=== PATIENT | female | born 1960 | race Caucasian/White ===

== ENCOUNTER 2016-10-09 22:27 | Emergency (ER) | payer OTHER ==
[2016-10-09 22:37] VITALS: O2SAT 95
[2016-10-09] MEDS ORDERED: TDAP ADULT 0.5 ML INJ (BOOSTRIX) IM ONE (22:49)
--- NOTE | 2016-10-09 22:50 | EDPHY ---
H & P Time Seen by Provider: 10/09/16 22:38 HPI/ROS: CHIEF COMPLAINT: Dog bite HISTORY OF PRESENT ILLNESS: This is a 56-year-old female presenting to the emergency department, reports her ochoa retriever had a seizure then after her dog woke up the dog was altered lunged at patient and bit her on the nose. Patient states her dog's vaccines are all up-to-date not ill. Patient states tetanus is not up-to-date. Denies any other injuries REVIEW OF SYSTEMS: Constitutional: No fever, no chills. Eyes: No discharge. ENT: No sore throat. Nose laceration Cardiovascular: No chest pain, no palpitations. Respiratory: No cough, no shortness of breath. Gastrointestinal: No abdominal pain, no vomiting. Genitourinary: No hematuria. Musculoskeletal: No back pain. Skin: No rashes. Bridge of nose laceration and abrasion to the tip of nose Neurological: No headache. Smoking Status: Never smoked Physical Exam: General Appearance: Alert, no distress. Eyes: no pallor or injection. ENT, Mouth: Mucous membranes moist. 2.5 cm laceration to bridge of nose, abrasion to the tip of nose Respiratory: Nonlabored respiratory effort Neurological: No focal deficits Skin: Warm and dry, no rashes. Musculoskeletal: No joint pain Psychiatric: Patient is oriented X 3, there is no agitation. Constitutional: Initial Vital Signs Temperature (C) 36.4 C 10/09/16 22:30 Heart Rate 43 L 10/09/16 22:30 Respiratory Rate 18 10/09/16 22:30 Blood Pressure 84/48 L 10/09/16 22:30 O2 Sat (%) 95 10/09/16 22:30 O2 Delivery Mode Room Air Allergies/Adverse Reactions: No Known Allergies Allergy (Unverified 10/09/16 22:37) Home Medications: Medication Instructions Recorded Amoxicillin/Clavulanate Pot 875 mg PO BID #14 tab 10/09/16 [Augmentin 875 MG TAB (*)] Medical Decision Making Procedures: Procedure: Laceration repair. Verbal consent was obtained from the patient. 2.5 cm laceration on the bridge of nose. 0.5% bupivacaine 3 mL local infiltrate. The wound was irrigated. There were no deep structures involved. The wound was repaired using 5-0 Ethilon 6 sutures placed with Steri-Strips. The procedure was performed by myself. Patient tolerated procedure. A dressing was applied by our EMT. ED Course/Re-evaluation: Discussed the plan of care: Wound irrigation with suture repair. Tetanus given 2344: 1st dose of Augmentin given here in the ED. Discussed discharge instructions---> stable discharge home Differential Diagnosis: Differential diagnosis considered but not limited to nasal fracture, foreign body and soft tissue infection - Data Points Medications Given: Discontinued Medications Amoxicillin/Clavulanate Potassium (Augmentin 875mg) 875 mg PO EDNOW ONE PRN Reason: Protocol Stop: 10/09/16 23:47 Last Admin: 10/10/16 00:06 Dose: 875 mg Diphtheria/Tetanus/Acell Pertussis (Boostrix) 0.5 ml IM .ONCE ONE Stop: 10/09/16 22:50 Last Admin: 10/09/16 23:05 Dose: 0.5 ml Departure - Departure Disposition: Home, Routine, Self-Care Clinical Impression: Laceration Dog bite Qualifiers: Encounter type: initial encounter Qualified Code(s): W54.0XXA - Bitten by dog, initial encounter Condition: Good Instructions: Care For Your Stitches (ED), Laceration (ED), Facial Laceration ( ED) Additional Instructions: Discussed discharge instructions with patient 1. Have sutures removed in 5-7 days 2. Take all antibiotics as prescribed. Your given tetanus here in the ED, along with the 1st dose of antibiotics 3. Monitor for any signs of infection, increased redness red streaks or drainage 4. Ice pack 15 minutes every hour as needed for any swelling Referrals: Pamela Pires PA [Primary Care Provider] - As per Instructions Prescriptions: Amoxicillin/Clavulanate Pot [Augmentin 875 MG TAB (*)] 875 mg PO BID #14 tab
[2016-10-09] MEDS ORDERED: AMOXICILLIN/CLAVULANATE POT 875/125 MG TAB PO ONE (23:46)
[2016-10-10 00:07] VITALS: BP 110/73; PULSE 65; RESP 16; TEMP 97.9
== END 2016-10-10 00:10 | disposition home or self-care (01) ==
PROC: 09QKXZZ Repair Nasal Mucosa and Soft Tissue, External Approach (ICD-10-PCS; principal; 2016-10-09)
DX: S01.21XA Laceration without foreign body of nose, initial encounter (principal); Z23 Encounter for immunization; W54.0XXA Bitten by dog, initial encounter